=== PATIENT | male | born 1985 | race Caucasian/White ===

== ENCOUNTER 2020-08-01 13:02 | Inpatient (IN) ==
[2020-08-01] MEDS ORDERED: 0.9 % SODIUM CHLORIDE 1,000 ML IV ONE (13:21)
[2020-08-01 13:46] LABS: POC Blood Urea Nitrogen 12 mg/dL (6-20); POC CO2 25 mmol/L (22-30); POC Calcium, Ionized 1.02 mmEq/L (1.16-1.32); POC Chloride 98 mEq/L (96-108); POC Creatinine 1.1 mg/dL (0.6-1.2); POC Glucose, Random 106 mg/dL (70-105); POC Hematocrit 40 % (41-55); POC Potassium 4.7 mEql/L (3.3-5.1); POC Sodium 129 mEq/L (133-145)
--- NOTE | 2020-08-01 14:01 | Cat Scan Report ---
CLINICAL INFORMATION: Trauma COMPARISON: None. TECHNIQUE: 2.5 mm helical slices were obtained in the skull base to vertex. Following reconstruction, axial reformatted images were reviewed at bone and parenchymal windows. The exam was performed using radiation dose optimization techniques including, but not limited to, automated exposure control, adjustment of the mA and/or kV according to patient size and use of iterative reconstruction technique. FINDINGS: The ventricles, sulci, fissures, and cisterns are normal in size and configuration. No extra-axial fluid collections are identified. The cerebrum, brainstem and cerebellum are unremarkable. There is no evidence of hemorrhage, mass effect, or edema. Bone windows show no osseous abnormality. IMPRESSION: Normal head CT without contrast. Interpreted and Authenticated by: Dale Conway 08/01/20
--- NOTE | 2020-08-01 14:04 | Cat Scan Report ---
CLINICAL INFORMATION: Trauma COMPARISON: None. TECHNIQUE: 2.5 mm helical slices were obtained from the skull base through the superior T2 end plate. Following reconstruction, 2.5 mm sagittal, coronal and axial reformations , with and without disc space angling, were processed. The exam was reviewed at bone and soft tissue windows. The exam was performed using radiation dose optimization techniques including, but not limited to, automated exposure control, adjustment of the mA and/or kV according to patient size and use of iterative reconstruction technique. FINDINGS: Sagittal and coronal reformatted images show the cervical spine to be anatomically aligned. There is no fracture or other osseous abnormality. The cervical cord is normal in contour and caliber without focal lesion. The soft tissues are normal. At C5-6 minimal broad disc spur complex slightly impinges the thecal sac. C6-7 mild broad disc protrusion is noted. C7-T1 disc level is normal. The central canal, lateral recesses and IV foramen are normal width at each level. IMPRESSION: No fracture or posttraumatic change. Interpreted and Authenticated by: Dale Conway 08/01/20
[2020-08-01] MEDS ORDERED: ACETAMINOPHEN 325 MG TABLET PO ONE (14:21)
[2020-08-01 14:37] LABS: Alcohol, Blood < 10.0 mg/dL
[2020-08-01 14:40] LABS: Acetaminophen < 5.0 ug/mL; Salicylate 0.3 mg/dL
[2020-08-01 14:41] LABS: ALT/SGPT 5 U/L (<40); AST/SGOT 5 U/L (<40); Alkaline Phosphatase 227 U/L (39-117); Bilirubin,Total 2.2 mg/dL (0.1-1.0); Blood Urea Nitrogen 11 mg/dL (6-20); Calcium 8.2 mg/dL (8.6-10.4); Carbon Dioxide 23 mmol/L (22-30); Chloride 91 mmol/L (96-108); Globulin 3.1 gm/dL (2.2-3.7); Glomerular Filtration Rate 98; Glucose 111 mg/dL (70-105)
[2020-08-01] MEDS ORDERED: LORazepam 1 MG TABLET PO ONE (14:56)
[2020-08-01] MEDS ORDERED: ONDANSETRON 4 MG ODT TABLET SL ONE (15:07)
[2020-08-01 16:19] LABS: Hematocrit 34.2 % (41.0-55.0); Hemoglobin 12.5 g/dL (13.5-16.5); Mean Cell Volume 95.8 fL (80.0-100.0); Mean Corpuscular HGB Conc 36.5 g/dL (31.0-36.0); RBC 3.57 M/mcL (4.50-5.90); Red Cell Distribution Width 15.4 % (11.5-14.5)
[2020-08-01 16:27] LABS: Amphetamine Screen,Urine Suspect positive; Barbiturate Screen,Urine None detected; Benzodiazepines Screen,Urine None detected; Cannabinoid Screen,Urine Suspect Positive; Cocaine Screen,Urine None detected; Opiate Screen,Urine None detected; Oxycodone, Urine Screen None detected; Phencyclidine Screen,Urine None detected
--- NOTE | 2020-08-01 17:37 | Emergency Department Note ---
Seizure HPI General Chief Complaint: Seizure Stated Complaint: seizure Time Seen by Provider: 08/01/20 13:21 Source: patient and EMS Mode of arrival: EMS Limitations: no limitations History of Present Illness HPI Narrative: Narrative: Related Data Previous Rx's Medication Instructions Recorded lorazepam [Ativan] 1 mg PO TID PRN #12 tab 08/01/20 pantoprazole [Protonix] 40 mg PO QDAY #30 tab 08/01/20 Allergies Allergy/AdvReac Type Severity Reaction Status Date / Time ibuprofen Allergy Swelling Verified 08/01/20 13:05 of the Eye Review of Systems ROS ROS Narrative: Narrative: [facility] Narrative Patient History Narrative: Narrative: Medical/Surgical/Family History All Active Problems (Updated 08/01/20 @ 18:03 by KHLOE Gambino) Anemia (Acute) Elevated lipase (Acute) Cigarette smoker (Acute) Polysubstance abuse (Acute) Alcohol withdrawal seizure (Acute) History of alcohol abuse (Acute) History of pancreatitis (Acute) Occasional tremors (Acute) Dizziness (Acute) Weakness (Acute) Alcohol dependence with withdrawal (Acute) Pancreatitis (Acute) Hematochezia (Acute) Gastritis (Acute) Intractable nausea and vomiting (Acute) Medical History (Updated 08/01/20 @ 18:03 by KHLOE Gambino) Cigarette smoker (Acute) Dizziness (Acute) History of alcohol abuse (Acute) History of pancreatitis (Acute) Occasional tremors (Acute) Sinusitis (Resolved) Viral syndrome (Resolved) Weakness (Acute) Social History Smoking Status: Current every day smoker Alcohol Intake Frequency: 2+ drinks per day Substance Use: does not use Exam Narrative Narrative: Narrative: General Limitations: no limitations Course Vital Signs Vital signs: Vital Signs Pulse Rate 126 H 08/01/20 13:02 Respiratory Rate 20 08/01/20 13:02 Blood Pressure 211/176 08/01/20 13:02 Pulse Oximetry (%) 98 08/01/20 13:02 Pulse Rate 94 H 08/01/20 18:46 Respiratory Rate 16 08/01/20 18:46 Blood Pressure 148/111 08/01/20 18:46 Pulse Oximetry (%) 98 08/01/20 18:46 [facility] MDM Narrative Medical decision making narrative: Narrative: Patient originally tells us on triage and on initial exam but he denies any alcohol use for at least 4 weeks. However upon further questioning him time and time again he admits to some use here and there, states "like last night I was shaky so I had a beer ". He adamantly denies any drug use although his amphetamines and marijuana are positive. He is also tachycardic and hypertensive on arrival which is most likely explained by amphetamine use. Vitals did stabilize throughout his stay here and his heart rate proved improved to sinus rhythm in the 80s and blood pressure down to 130s over 80s. At 1830 upon going to discharge the patient, we did get a repeat CBC back. This was ordered because the original one could not be resulted however they were able to result some of it. Upon repeat he did have a significant drop in H&H. This is most likely due to receiving 2 L of fluid. Patient denies any blood in his stools or vomiting blood although he did vomit blood over a week ago. We did do orthostatics which were unremarkable. He actually does still have some mild hypertension blood pressures of 140s over 100. Upon standing though he did start having significant tremors and became diaphoretic and generally feeling poor again. We did give him another dose of Ativan IV. I did have a lengthy discussion with this patient about whether or not he wants to get treatment and detox completely and then get some help. He is adamant that he does. He is willing to go either inpatient or to an IOP program but needs help detoxing. At 1645 I did speak with Dr. Palmer with addiction medicine. She states she can be consulted if needed but there are protocols in place and she agrees that this patient needs to be admitted for detox. At 1910 I did speak with the hospitalist, Dr. Burrell who agrees to accept this patient. Medical Records Medical records reviewed: Yes I reviewed the patient's medical records. Lab Data Lab results reviewed: Yes I reviewed the patient's lab results. Lab results narrative: Due to lipemia, lab could not get the CBC. For that reason I did ask them to redraw again just to see if we get it for baseline. They were unable to get the white count but everything else was able to be resulted. 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 He was hydrated with 2 L normal saline. He did have a significant drop in H&H that is most likely due to the IV hydration. He again was examined and very minimal abdominal tenderness that is diffuse to the upper abdomen. Rectal exam done and is in the Hemoccult is negative. He does note that he has vomited blood a little over a week ago but nothing since. He denies any dizziness or lightheadedness. Orthostatic vital signs unremarkable just prior to discharge. He does have an appointment scheduled with a GI provider on September 15. Did discuss with him that if any of his symptoms increase he can return to the ER sooner for recheck. He voices an understanding. Case also discussed with supervising ER physician Dr. Strickland who agrees with work up and plan of care. Result diagrams: 08/01/20 15:50 08/01/20 13:35 Labs: Lab Results 08/01/20 08/01/20 08/01/20 Range/Units 13:35 13:35 13:35 WBC TNP RBC 3.57 L (4.50-5.90) M/mcL Hgb 12.5 L (13.5-16.5) g/dL Hct 34.2 L (41.0-55.0) % POC Hct 40 L (41-55) % MCV 95.8 (80.0-100.0) fL MCH 35.0 H (26.0-34.0) pg MCHC 36.5 H (31.0-36.0) g/dL RDW 15.4 H (11.5-14.5) % Plt Count TNP MPV TNP Neut % (Auto) TNP Lymph % (Auto) TNP [place] % (Auto) TNP Eos % (Auto) TNP Baso % (Auto) TNP Lymph # (Auto) TNP [place] # (Auto) TNP Eos # (Auto) TNP Baso # (Auto) TNP Absolute Neutrophils TNP Differential Comment TNP POC Sodium 129 L (133-145) mEq/L Sodium 127 L (133-145) mmol/L POC Potassium 4.7 (3.3-5.1) mEql/L Potassium 4.6 (3.3-5.1) mmol/L POC Chloride 98 (96-108) mEq/L Chloride 91 L (96-108) mmol/L Carbon Dioxide 23 (22-30) mmol/L POC Total CO2 25 (22-30) mmol/L Anion Gap 13.0 (8.0-16.0) POC BUN 12 (6-20) mg/dL BUN 11 (6-20) mg/dL Creatinine 1.0 (0.7-1.2) mg/dL POC Creatinine 1.1 (0.6-1.2) mg/dL GFR Calculation 98 Glucose 111 H (70-105) mg/dL POC Glucose 106 H (70-105) mg/dL Calcium 8.2 L (8.6-10.4) mg/dL POC WB Ioniz Calcium 1.02 L (1.16-1.32) mmEq/L Total Bilirubin 2.2 H (0.1-1.0) mg/dL AST 5 (<40) U/L ALT 5 (<40) U/L Alkaline Phosphatase 227 H (39-117) U/L Total Protein 6.1 (5.9-8.4) gm/dL Albumin 3.0 L (3.2-5.2) gm/dL Globulin 3.1 (2.2-3.7) gm/dL Albumin/Globulin Ratio 1.0 (1.0-2.3) Lipase (7-60) U/L Salicylates 0.3 mg/dL Urine Opiates Screen Ur Oxycodone Screen Urine Methadone Screen Acetaminophen < 5.0 ug/mL Ur Barbiturates Screen Ur Phencyclidine Scrn Ur Amphetamines Screen U Benzodiazepines Scrn Urine Cocaine Screen U Marijuana (THC) Screen Ethyl Alcohol (<0.010) gm/dL 08/01/20 08/01/20 08/01/20 Range/Units 13:35 13:40 15:50 WBC TNP RBC 3.03 L (4.50-5.90) M/mcL Hgb 10.4 L (13.5-16.5) g/dL Hct 28.9 L (41.0-55.0) % POC Hct (41-55) % MCV 95.4 (80.0-100.0) fL MCH 34.3 H (26.0-34.0) pg MCHC 36.0 (31.0-36.0) g/dL RDW 15.6 H (11.5-14.5) % Plt Count TNP MPV TNP Neut % (Auto) TNP Lymph % (Auto) TNP [place] % (Auto) TNP Eos % (Auto) TNP Baso % (Auto) TNP Lymph # (Auto) TNP [place] # (Auto) TNP Eos # (Auto) TNP Baso # (Auto) TNP Absolute Neutrophils TNP Differential Comment TNP POC Sodium (133-145) mEq/L Sodium (133-145) mmol/L POC Potassium (3.3-5.1) mEql/L Potassium (3.3-5.1) mmol/L POC Chloride (96-108) mEq/L Chloride (96-108) mmol/L Carbon Dioxide (22-30) mmol/L POC Total CO2 (22-30) mmol/L Anion Gap (8.0-16.0) POC BUN (6-20) mg/dL BUN (6-20) mg/dL Creatinine (0.7-1.2) mg/dL POC Creatinine (0.6-1.2) mg/dL GFR Calculation Glucose (70-105) mg/dL POC Glucose (70-105) mg/dL Calcium (8.6-10.4) mg/dL POC WB Ioniz Calcium (1.16-1.32) mmEq/L Total Bilirubin (0.1-1.0) mg/dL AST (<40) U/L ALT (<40) U/L Alkaline Phosphatase (39-117) U/L Total Protein (5.9-8.4) gm/dL Albumin (3.2-5.2) gm/dL Globulin (2.2-3.7) gm/dL Albumin/Globulin Ratio (1.0-2.3) Lipase 429 H (7-60) U/L Salicylates mg/dL Urine Opiates Screen Ur Oxycodone Screen Urine Methadone Screen Acetaminophen ug/mL Ur Barbiturates Screen Ur Phencyclidine Scrn Ur Amphetamines Screen U Benzodiazepines Scrn Urine Cocaine Screen U Marijuana (THC) Screen Ethyl Alcohol 0.010 H (<0.010) gm/dL 08/01/20 Range/Units 15:55 WBC RBC (4.50-5.90) M/mcL Hgb (13.5-16.5) g/dL Hct (41.0-55.0) % POC Hct (41-55) % MCV (80.0-100.0) fL MCH (26.0-34.0) pg MCHC (31.0-36.0) g/dL RDW (11.5-14.5) % Plt Count MPV Neut % (Auto) Lymph % (Auto) [place] % (Auto) Eos % (Auto) Baso % (Auto) Lymph # (Auto) [place] # (Auto) Eos # (Auto) Baso # (Auto) Absolute Neutrophils Differential Comment POC Sodium (133-145) mEq/L Sodium (133-145) mmol/L POC Potassium (3.3-5.1) mEql/L Potassium (3.3-5.1) mmol/L POC Chloride (96-108) mEq/L Chloride (96-108) mmol/L Carbon Dioxide (22-30) mmol/L POC Total CO2 (22-30) mmol/L Anion Gap (8.0-16.0) POC BUN (6-20) mg/dL BUN (6-20) mg/dL Creatinine (0.7-1.2) mg/dL POC Creatinine (0.6-1.2) mg/dL GFR Calculation Glucose (70-105) mg/dL POC Glucose (70-105) mg/dL Calcium (8.6-10.4) mg/dL POC WB Ioniz Calcium (1.16-1.32) mmEq/L Total Bilirubin (0.1-1.0) mg/dL AST (<40) U/L ALT (<40) U/L Alkaline Phosphatase (39-117) U/L Total Protein (5.9-8.4) gm/dL Albumin (3.2-5.2) gm/dL Globulin (2.2-3.7) gm/dL Albumin/Globulin Ratio (1.0-2.3) Lipase (7-60) U/L Salicylates mg/dL Urine Opiates Screen None detected Ur Oxycodone Screen None detected Urine Methadone Screen None detected Acetaminophen ug/mL Ur Barbiturates Screen None detected Ur Phencyclidine Scrn None detected Ur Amphetamines Screen Suspect positive A U Benzodiazepines Scrn None detected Urine Cocaine Screen None detected U Marijuana (THC) Screen Suspect positive A Ethyl Alcohol (<0.010) gm/dL Radiology Data Radiology results reviewed: Yes I reviewed the patient's radiology results. Radiology results narrative: CT of the head is negative for any acute findings. In addition we did review his recent CT of the abdomen and pelvis which was negative other than increased fatty liver consistent with alcoholism. Chose not to repeat this due to the recent CT with the last couple of weeks. His lipase is continuing to increase however his abdominal exam is fairly benign. He has some mild pain but is tolerable. In addition he continues to drink alcohol intermittently and his drug screen is positive for amphetamines. Discharge Plan Patient/Caregiver Discharge Instructions Pt seen by PROFESSIONAL [employer]LEYBALL PLAYER/PA only: Yes Clinical Impression: History of alcohol abuse, History of pancreatitis, Alcohol dependence with withdrawal, Polysubstance abuse, Alcohol withdrawal seizure, Anemia, Elevated lipase Instructions: Alcohol Withdrawal (ED), Polysubstance Abuse (ED), Anemia (ED) Activity Restrictions/Additional Instructions: Avoid all alcohol and drug use. Ativan: 1 orally every 8 hours as needed for withdrawal symptoms. Protonix: 1 orally daily. You need to follow-up with your primary care provider of your choice within the next 24 to 48 hours for follow-up. If you do not have a primary care provider you may follow-up with Dr. Grossman who is on-call for unassigned patients. His number has been provided here for you. In addition we have sent a referral for you to Dr. Ohara Please call their office to schedule a follow-up appointment. She is an medical transport specialist. Return to ER if worsening signs/symptoms or other concerns. Patient Disposition: Xfer As Inpt ([facility]) Condition: Fair Follow up with: April Ohara DO [Physician] - Rakesh Grossman MD [Physician] - Prescriptions: New lorazepam [Ativan] 1 mg tablet 1 mg PO TID PRN (Reason: alcohol withdrawal) Qty: 12 RF: 0 pantoprazole [Protonix] 40 mg tablet,delayed release (DR/EC) 40 mg PO QDAY Qty: 30 RF: 0
[2020-08-01 17:45] LABS: Hematocrit 28.9 % (41.0-55.0); Hemoglobin 10.4 g/dL (13.5-16.5); Mean Cell Volume 95.4 fL (80.0-100.0); RBC 3.03 M/mcL (4.50-5.90); Red Cell Distribution Width 15.6 % (11.5-14.5)
[2020-08-01] MEDS ORDERED: LORazepam 2 MG/ML VIAL IV ONE (18:14)
[2020-08-01 19:47] LABS: Basophils # (Auto) 0.05 K/mcL (0.00-0.20); Basophils % (Auto) 0.6 % (0.0-2.0); Eosinophils # (Auto) 0.05 K/mcL (0.00-0.70); Eosinophils % (Auto) 0.6 % (0.0-7.0); Hematocrit 34.6 % (41.0-55.0); Hemoglobin 12.3 g/dL (13.5-16.5); Lymphocytes # (Auto) 1.85 K/mcL (1.50-4.80); Lymphocytes % (Auto) 23.4 % (15.0-49.0); Mean Cell Volume 96.4 fL (80.0-100.0); Mean Corpuscular HGB Conc 35.5 g/dL (31.0-36.0); Mean Platelet Volume 12.9 fL (7.4-10.4); Monocytes # (Auto) 0.42 K/mcL (0.10-0.90); Monocytes % (Auto) 5.3 % (1.0-12.0); Neutrophils % (Auto) 70.1 % (38.0-78.0); Platelet Count 72 K/mcL (140-440); RBC 3.59 M/mcL (4.50-5.90); Red Cell Distribution Width 15.5 % (11.5-14.5); WBC 7.9 K/mcL (4.5-11.0)
--- NOTE | 2020-08-01 20:06 | Internal Med History&Physical ---
HPI History of Present Illness Patient information: Note initiated : 08/01/20 at 7:57 pm Service Date, if different from initiated Date: [] Patient: Lynn Leonardo a 34 y/o M admitted on for seizure. Chief Complaint: [] History of present illness: Mr. Leonardo is a 34 year old M Presents to the ED with seizure. Patient has not had seizures before. He does have an extensive history of alcohol abuse. States he drinks at least half a gallon of vodka on a typical day. He has been trying to cut back lately. While at work he had a witnessed seizure. He was tachycardic and hypertensive in the ED. He says that when he gets tremulous at home he will drink alcohol will resolve of his withdrawal symptoms. He has a family history of alcoholism as well. Additionally he complains of epigastric sharp pain nonradiating that he attributes to nausea vomiting. He states he does not eat or drink very much because he developed nausea vomiting and then subsequent abdominal pain. he says this been going on for 6 months but worsened over the past couple months. He says he is being set up to see [facility] gastroenterology group. He denies any drug use other than occasional marijuana. He had his stool Hemoccult test which was negative in the ED. UDS showed a preliminary positive amphetamine screen with confirmation pending, he denies any methamphetamine use. Review of Systems: Pertinent positives of as above plus headache. Denies fever/chills/nausea/vomiting/chest or abdominal pain/cough/dyspnea/diarrhea. Remaining 10 point review of system reviewed negative. PFSH PFSH All Active Problems (Updated 08/01/20 @ 18:03 by KHLOE Gambino) Anemia (Acute) Elevated lipase (Acute) Cigarette smoker (Acute) Polysubstance abuse (Acute) Alcohol withdrawal seizure (Acute) History of alcohol abuse (Acute) History of pancreatitis (Acute) Occasional tremors (Acute) Dizziness (Acute) Weakness (Acute) Alcohol dependence with withdrawal (Acute) Pancreatitis (Acute) Hematochezia (Acute) Gastritis (Acute) Intractable nausea and vomiting (Acute) Medical History (Updated 08/01/20 @ 18:03 by KHLOE Gambino) Cigarette smoker (Acute) Dizziness (Acute) History of alcohol abuse (Acute) History of pancreatitis (Acute) Occasional tremors (Acute) Sinusitis (Resolved) Viral syndrome (Resolved) Weakness (Acute) Social History (Updated 08/01/20 @ 20:01 by Chin Burrell DO) smoking status: Current every day smoker alcohol intake frequency: 2+ drinks per day substance use type: does not use additional history: Family history of alcoholism. Past surgical history: Hernia repair MEDS/ALLERGIES Home Medications and Allergies Home Medications Medication Instructions Recorded Confirmed Type lorazepam [Ativan] 1 mg PO TID PRN #12 tab 08/01/20 Rx pantoprazole [Protonix] 40 mg PO QDAY #30 tab 08/01/20 Rx Allergies Allergy/AdvReac Type Severity Reaction Status Date / Time ibuprofen Allergy Swelling Verified 08/01/20 13:05 of the Eye EXAM Constitutional Vitals: Pulse Resp BP Pulse Ox 87 16 148/111 99 08/01/20 19:46 08/01/20 18:46 08/01/20 19:46 08/01/20 19:46 Exam: General: Alert, Awake, mildly anxious Eyes/N/T: EOMI, PERRL and mildly dilated dry MM Head/Neck: neck supple, normocephalic atraumatic CV: RRR, No murmurs, normal s1/s2 Pulm: Clear b/l, no wheezing/rhonchi/rales Abd: soft, nontender, +BS x4 Ext: no clubbing/cyanosis/edema Neuro: Alert, no focal deficits, moves all extremities, CN 2-12 grossly intact, symmetrical strength b/l upper/lower, sensations intact b/l upper/lower Skin: warm/dry DATA Data Completed and Pending Labs: Labs from last 24 hours 08/01/20 08/01/20 08/01/20 19:36 18:39 15:55 WBC 7.9 RBC 3.59 L Hgb 12.3 L Hct 34.6 L POC Hct MCV 96.4 MCH 34.3 H MCHC 35.5 RDW 15.5 H Plt Count 72 L MPV 12.9 H Neut % (Auto) 70.1 Lymph % (Auto) 23.4 [place] % (Auto) 5.3 Eos % (Auto) 0.6 Baso % (Auto) 0.6 Lymph # (Auto) 1.85 [place] # (Auto) 0.42 Eos # (Auto) 0.05 Baso # (Auto) 0.05 Absolute Neutrophils 5.54 Differential Comment POC Sodium Sodium POC Potassium Potassium POC Chloride Chloride Carbon Dioxide POC Total CO2 Anion Gap POC BUN BUN Creatinine POC Creatinine GFR Calculation Glucose POC Glucose Calcium POC WB Ioniz Calcium Total Bilirubin AST ALT Alkaline Phosphatase Total Protein Albumin Globulin Albumin/Globulin Ratio Lipase Salicylates Urine Opiates Screen None detected Ur Opiates Confirm Pending Ur Oxycodone Screen None detected Urine Methadone Screen None detected Ur Methadone Confirm Pending Acetaminophen Ur Barbiturates Screen None detected Ur Barbiturate Confirm Pending Ur Phencyclidine Scrn None detected Urine PCP Confirm Pending Ur Amphetamines Screen Suspect positive A U Amphetamines Confirm Pending U Benzodiazepines Scrn None detected U Benzodiazepine Confm Pending Urine Cocaine Screen None detected Urine Cocaine Confirm Pending U Cannabinoids Confirm Pending U Marijuana (THC) Screen Suspect positive A Ethyl Alcohol SARS-CoV-2 (PCR) Pending 08/01/20 08/01/20 08/01/20 15:50 13:40 13:35 WBC TNP RBC 3.03 L Hgb 10.4 L Hct 28.9 L POC Hct MCV 95.4 MCH 34.3 H MCHC 36.0 RDW 15.6 H Plt Count TNP MPV TNP Neut % (Auto) TNP Lymph % (Auto) TNP [place] % (Auto) TNP Eos % (Auto) TNP Baso % (Auto) TNP Lymph # (Auto) TNP [place] # (Auto) TNP Eos # (Auto) TNP Baso # (Auto) TNP Absolute Neutrophils TNP Differential Comment TNP POC Sodium Sodium POC Potassium Potassium POC Chloride Chloride Carbon Dioxide POC Total CO2 Anion Gap POC BUN BUN Creatinine POC Creatinine GFR Calculation Glucose POC Glucose Calcium POC WB Ioniz Calcium Total Bilirubin AST ALT Alkaline Phosphatase Total Protein Albumin Globulin Albumin/Globulin Ratio Lipase 429 H Salicylates Urine Opiates Screen Ur Opiates Confirm Ur Oxycodone Screen Urine Methadone Screen Ur Methadone Confirm Acetaminophen Ur Barbiturates Screen Ur Barbiturate Confirm Ur Phencyclidine Scrn Urine PCP Confirm Ur Amphetamines Screen U Amphetamines Confirm U Benzodiazepines Scrn U Benzodiazepine Confm Urine Cocaine Screen Urine Cocaine Confirm U Cannabinoids Confirm U Marijuana (THC) Screen Ethyl Alcohol 0.010 H SARS-CoV-2 (PCR) 08/01/20 08/01/20 08/01/20 13:35 13:35 13:35 WBC TNP RBC 3.57 L Hgb 12.5 L Hct 34.2 L POC Hct 40 L MCV 95.8 MCH 35.0 H MCHC 36.5 H RDW 15.4 H Plt Count TNP MPV TNP Neut % (Auto) TNP Lymph % (Auto) TNP [place] % (Auto) TNP Eos % (Auto) TNP Baso % (Auto) TNP Lymph # (Auto) TNP [place] # (Auto) TNP Eos # (Auto) TNP Baso # (Auto) TNP Absolute Neutrophils TNP Differential Comment TNP POC Sodium 129 L Sodium 127 L POC Potassium 4.7 Potassium 4.6 POC Chloride 98 Chloride 91 L Carbon Dioxide 23 POC Total CO2 25 Anion Gap 13.0 POC BUN 12 BUN 11 Creatinine 1.0 POC Creatinine 1.1 GFR Calculation 98 Glucose 111 H POC Glucose 106 H Calcium 8.2 L POC WB Ioniz Calcium 1.02 L Total Bilirubin 2.2 H AST 5 ALT 5 Alkaline Phosphatase 227 H Total Protein 6.1 Albumin 3.0 L Globulin 3.1 Albumin/Globulin Ratio 1.0 Lipase Salicylates 0.3 Urine Opiates Screen Ur Opiates Confirm Ur Oxycodone Screen Urine Methadone Screen Ur Methadone Confirm Acetaminophen < 5.0 Ur Barbiturates Screen Ur Barbiturate Confirm Ur Phencyclidine Scrn Urine PCP Confirm Ur Amphetamines Screen U Amphetamines Confirm U Benzodiazepines Scrn U Benzodiazepine Confm Urine Cocaine Screen Urine Cocaine Confirm U Cannabinoids Confirm U Marijuana (THC) Screen Ethyl Alcohol SARS-CoV-2 (PCR) A/P Narrative A/P Narrative: A: *Acute withdrawal w/Seizure: *Alcohol abuse: *Pancreatitis, alcohol induced, mild: *Hyponatremia: *Tobacco abuse: *Fatty liver: *GERD: * P: -CIWA protocol -Multivitamins -IV fluids -N.p.o. tonight - -Follow-up with Dr. Trent conklin outpatient -Follow-up with gastroenterology outpatient -Smoking cessation counseling -ppx: SCD Time Spent With Patient Time: Total time spent is greater than 50% in coordination of care (as documented) at patient's floor/unit and/or counseling patient:
[2020-08-01] MEDS ORDERED: PANTOPRAZOLE 40 MG VIAL IV SCH (20:35)
[2020-08-01] MEDS ORDERED: SENNOSIDES 1 TABLET PO PRN (20:35)
[2020-08-01] MEDS ORDERED: POLYETHYLENE GLYCOL 3350 17 GM PACKET PO PRN (20:35)
[2020-08-01] MEDS ORDERED: POTASSIUM CHLORIDE 20 MEQ TABLET PO PRN ×2 (20:35)
[2020-08-01] MEDS ORDERED: MAGNESIUM SULFATE 2 GM/50 ML BAG IV PRN (20:35)
[2020-08-01] MEDS ORDERED: POTASSIUM CHLORIDE 40 MEQ in DEXTROSE 5% IN WATER 500 ML IV PRN (20:35)
[2020-08-01] MEDS: 0.9 % SODIUM CHLORIDE 1,000 ML IV SCH (21:03)
[2020-08-01] MEDS: ONDANSETRON 4 MG/2 ML VIAL IV PRN (21:11)
[2020-08-01] MEDS: THIAMINE 100 MG in 0.9 % SODIUM CHLORIDE 50 ML IV SCH (21:52)
[2020-08-01] MEDS: 0.9 % SODIUM CHLORIDE 10 ML SYRINGE IV SCH ×2 (21:53)
[2020-08-01] MEDS ORDERED: THIAMINE 100 MG/ML VIAL ONE (21:54)
[2020-08-01 22:00] LABS: Lactate Dehydrogenase 302 U/L (135-225)
[2020-08-01] MEDS: HYDROcodone/APAP 5/325MG TABLET PO PRN (22:09)
[2020-08-01] MEDS: chlordiazePOXIDE 25 MG CAPSULE PO PRN (22:10)
[2020-08-02] MEDS: LORazepam 2 MG/ML VIAL IV PRN ×5 (01:36→21:33)
[2020-08-02] MEDS: 0.9 % SODIUM CHLORIDE 1,000 ML IV SCH (05:41)
[2020-08-02] MEDS: 0.9 % SODIUM CHLORIDE 10 ML SYRINGE IV SCH ×4 (05:41→20:32)
--- NOTE | 2020-08-02 06:46 | Internal Med Progress Note ---
SUBJECTIVE Subjective Patient information: Note initiated : 08/02/20 at 6:43 am Service Date, if different from initiated Date: [] Patient: Lynn Leonardo 34 y/o M admitted on 08/01/20 for seizure. Chief Complaint: [] Interval history: History of present illness: Mr. Leonardo is a 34 year old M Presents to the ED with seizure. Patient has not had seizures before. He does have an extensive history of alcohol abuse. States he drinks at least half a gallon of vodka on a typical day. He has been trying to cut back lately. While at work he had a witnessed seizure. He was tachycardic and hypertensive in the ED. He says that when he gets tremulous at home he will drink alcohol will resolve of his withdrawal symptoms. He has a family history of alcoholism as well. Additionally he complains of epigastric sharp pain nonradiating that he attributes to nausea vomiting. He states he does not eat or drink very much because he developed nausea vomiting and then subsequent abdominal pain. he says this been going on for 6 months but worsened over the past couple months. He says he is being set up to see [facility] gastroenterology group. He denies any drug use other than occasional marijuana. He had his stool Hemoccult test which was negative in the ED. 08/02 CIWA between 9 and 13 last night. Given as needed lorazepam. No other overnight issues. Patient tolerated clear liquid diet last night. Says he is hungry. Platelets low, chronically low. No bleeding. Dates he has some headache/fever/chills. Afebrile on vital signs check. Some nausea but no vomiting. Similar abdominal pain to yesterday but a little better. Review of Systems: denies vomiting/chest pain/cough/dyspnea/diarrhea. Otherwise see above. Constitutional Vitals: Vital Signs Temp Pulse Resp BP Pulse Ox 98.2 F 82 12 127/95 99 08/02/20 04:00 08/02/20 05:56 08/02/20 05:56 08/02/20 04:00 08/02/20 05:56 Period Temp Pulse Resp BP Sys/Jennings Pulse Ox Last 24 Hr 98.2 F-98.2 F 75-126 11-23 127-211/94-176 93-100 Intake and Output 02/08/02/20 08/02/20 21:59 05:59 13:59 Intake Total 1000 1671 Output Total 2700 Balance 1000 -1029 Weight 59.602 kg Intake & Output: Intake & Output 08/01/20 08/02/20 08/02/20 21:59 05:59 13:59 Intake Total 1000 1671 Output Total 2700 Balance 1000 -1029 Weight 59.602 kg Intake: IV 1000 1051 Sodium Chloride 0.9% 1,000 ml @ 1000 1000 125 mls/hr IV .Q8H JESSICA Rx#: [id number] Vitamin B1 100 mg In Sodium 51 Chloride 0.9% 50 ml @ 50 mls/hr IV DAILY JESSICA Rx#:[id number] Oral 620 Output: Void Amount 2700 Other: Urine Appearance Clear Urine Color Dark Katharina Exam: General: Alert, Awake, no acute distress Eyes/N/T: EOMI, Head/Neck: neck supple CV: RRR, No murmurs, Pulm: Clear b/l, no wheezing/rhonchi/rales Abd: soft, generalized TTP but more so epigastrum, +BS x4 Ext: no clubbing/cyanosis/edema Neuro: Alert, no focal deficits, moves all extremities, Skin: warm/dry OBJ DATA Labs CBC & Chem 7: 08/02/20 05:13 08/02/20 05:12 Labs: Abnormal Lab Results 08/01/20 08/01/20 08/01/20 20:57 18:39 15:55 RBC 3.59 L Hgb 12.3 L Hct 34.6 L POC Hct MCH 34.3 H MCHC RDW 15.5 H Plt Count 72 L MPV 12.9 H POC Sodium Sodium Chloride Glucose POC Glucose Calcium POC WB Ioniz Calcium Total Bilirubin Alkaline Phosphatase Lactate Dehydrogenase 302 H Albumin Lipase Ur Amphetamines Screen Suspect positive A U Marijuana (THC) Screen Suspect positive A Ethyl Alcohol 08/01/20 08/01/20 08/01/20 15:50 13:40 13:35 RBC 3.03 L Hgb 10.4 L Hct 28.9 L POC Hct MCH 34.3 H MCHC RDW 15.6 H Plt Count MPV POC Sodium Sodium Chloride Glucose POC Glucose Calcium POC WB Ioniz Calcium Total Bilirubin Alkaline Phosphatase Lactate Dehydrogenase Albumin Lipase 429 H Ur Amphetamines Screen U Marijuana (THC) Screen Ethyl Alcohol 0.010 H 08/01/20 08/01/20 13:35 13:35 RBC 3.57 L Hgb 12.5 L Hct 34.2 L POC Hct 40 L MCH 35.0 H MCHC 36.5 H RDW 15.4 H Plt Count MPV POC Sodium 129 L Sodium 127 L Chloride 91 L Glucose 111 H POC Glucose 106 H Calcium 8.2 L POC WB Ioniz Calcium 1.02 L Total Bilirubin 2.2 H Alkaline Phosphatase 227 H Lactate Dehydrogenase Albumin 3.0 L Lipase Ur Amphetamines Screen U Marijuana (THC) Screen Ethyl Alcohol Meds: Medications Hydrocodone Bitart/Acetaminophen ([place] 5/325mg) 1 tab PO Q4HP PRN PRN Reason: PAIN LEVEL 3-6 Last Admin: 08/01/20 22:09 Dose: 1 tab Documented by: Chlordiazepoxide HCl (Librium) 50 mg PO Q4HP PRN PRN Reason: Alcohol Withdrawal Last Admin: 08/01/20 22:10 Dose: 50 mg Documented by: Clonidine HCl (Catapres) 0.1 mg PO Q4HP PRN PRN Reason: ALC Folic Acid (Folic Acid) 1 mg PO DAILY [facility] Potassium Chloride 40 meq/ (Dextrose) 520 mls @ 130 mls/hr IV UD PRN PRN Reason: Potassium < 3 Magnesium Sulfate (Magnesium Sulfate) 2 gm in 50 mls @ 50 mls/hr IV UD PRN PRN Reason: Magnesium </= 1.6 Sodium Chloride (Sodium Chloride 0.9%) 1,000 mls @ 125 mls/hr IV .Q8H JESSICA Last Admin: 08/02/20 05:41 Dose: 125 mls/hr Documented by: Thiamine HCl 100 mg/ Sodium (Chloride) 51 mls @ 50 mls/hr IV DAILY [facility] Last Infusion: 08/02/20 01:43 Dose: Infused Documented by: Iron Carb/Multivit/[place]/Folic Acid (Multivitamin W/Minerals) 1 tab PO DAILY JESSICA Lorazepam (Ativan) 0 mg IV Q4HP PRN; Protocol PRN Reason: Alcohol Withdrawal Last Admin: 08/02/20 01:36 Dose: 2 mg Documented by: Ondansetron HCl (Zofran) 4 mg IV Q4HP PRN PRN Reason: Nausea And Vomiting Last Admin: 08/01/20 21:11 Dose: 4 mg Documented by: Pantoprazole Sodium (Protonix) 40 mg IV BIDAC [facility] Last Admin: 08/01/20 21:52 Dose: 40 mg Documented by: Polyethylene Glycol (Miralax) 17 gm PO DAILYP PRN PRN Reason: Constipation Potassium Chloride (Kdur) 40 meq PO UD PRN PRN Reason: Potssium is 3-3.5 Potassium Chloride (Kdur) 40 meq PO UD PRN PRN Reason: Potassium < 3 Senna (Senokot) 2 tab PO DAILYP PRN PRN Reason: Constipation Sodium Chloride (Saline Flush) 10 ml IV Q8 [facility] Last Admin: 08/02/20 05:41 Dose: Not Given Documented by: Sodium Chloride (Saline Flush) 10 ml IV Q8 [facility] Last Admin: 08/02/20 05:41 Dose: Not Given Documented by: A/P Narrative A/P Narrative: A: *Acute Alcohol withdrawal w/Seizure: *Alcohol abuse: *Pancreatitis, alcohol induced, mild: *Hyponatremia: improved *Tobacco abuse: *Fatty liver with Transaminitis: stable from June *Thrombocytopenia: likely etoh induced by direct toxicity to bone marrow -72>47 *GERD: *in process of being set-up with GI outpt for endoscopy for n/v with food. P: -CIWA protocol -Multivitamins -IV fluids -start clear liquids -abd u/s pending -Follow-up with Dr. Ohara outpatient -Follow-up with gastroenterology outpatient -Smoking cessation counseling -ppx: SCD Time Spent With Patient Time: Total time spent is greater than 50% in coordination of care (as documented) at patient's floor/unit and/or counseling patient:
[2020-08-02] MEDS: PANTOPRAZOLE 40 MG PACKET PO SCH ×2 (07:28→17:45)
[2020-08-02] MEDS: HYDROcodone/APAP 5/325MG TABLET PO PRN ×4 (07:43→20:36)
[2020-08-02 07:57] LABS: ALT/SGPT 100 U/L (<40); AST/SGOT 189 U/L (<40); Albumin 3.2 gm/dL (3.2-5.2); Alkaline Phosphatase 224 U/L (39-117); Bilirubin,Direct 1.2 mg/dL (<0.3); Bilirubin,Total 2.3 mg/dL (0.1-1.0); Blood Urea Nitrogen 4 mg/dL (6-20); Calcium 7.9 mg/dL (8.6-10.4); Carbon Dioxide 27 mmol/L (22-30); Chloride 95 mmol/L (96-108); Globulin 3.3 gm/dL (2.2-3.7); Glomerular Filtration Rate 111; Glucose 66 mg/dL (70-105); Lactate Dehydrogenase 341 U/L (135-225); Phosphorous 2.4 mg/dL (2.5-4.5); Triglycerides 535 mg/dL (<150); Uric Acid 8.2 mg/dL (2.5-8.0)
[2020-08-02 07:57] LABS: Basophils # (Auto) 0.04 K/mcL (0.00-0.20); Basophils % (Auto) 0.5 % (0.0-2.0); Eosinophils # (Auto) 0.13 K/mcL (0.00-0.70); Eosinophils % (Auto) 1.8 % (0.0-7.0); Hematocrit 34.3 % (41.0-55.0); Hemoglobin 12.3 g/dL (13.5-16.5); Lymphocytes # (Auto) 1.76 K/mcL (1.50-4.80); Lymphocytes % (Auto) 23.9 % (15.0-49.0); Mean Corpuscular HGB Conc 35.9 g/dL (31.0-36.0); Mean Platelet Volume 12.4 fL (7.4-10.4); Monocytes # (Auto) 0.38 K/mcL (0.10-0.90); Monocytes % (Auto) 5.2 % (1.0-12.0); Neutrophils % (Auto) 68.6 % (38.0-78.0); Platelet Count 47 K/mcL (140-440); RBC 3.61 M/mcL (4.50-5.90); Red Cell Distribution Width 14.8 % (11.5-14.5); WBC 7.4 K/mcL (4.5-11.0)
[2020-08-02 09:14] LABS: INR 0.9 (0.9-1.1); Prothrombin Time 12.8 sec (11.9-14.5)
[2020-08-02] MEDS: MULTIVIT,THER IRON,CA,FA & MIN 1 TABLET PO SCH (09:31)
[2020-08-02] MEDS: FOLIC ACID 1 MG TABLET PO SCH (09:31)
[2020-08-02] MEDS: DEXTROSE 5%-NS 1,000 ML IV SCH ×2 (09:31→17:54)
[2020-08-02] MEDS: ONDANSETRON 4 MG/2 ML VIAL IV PRN (09:33)
[2020-08-02 09:37] LABS: Platelet Count 59 K/mcL (140-440); WBC 7.7 K/mcL (4.5-11.0)
[2020-08-02 09:40] LABS: Basophils # (Auto) 0.04 K/mcL (0.00-0.20); Basophils % (Auto) 0.5 % (0.0-2.0); Eosinophils # (Auto) 0 K/mcL (0.00-0.70); Eosinophils % (Auto) 0.1 % (0.0-7.0); Lymphocytes # (Auto) 1.03 K/mcL (1.50-4.80); Lymphocytes % (Auto) 13.4 % (15.0-49.0); Mean Platelet Volume 11.6 fL (7.4-10.4); Neutrophils % (Auto) 80.9 % (38.0-78.0)
[2020-08-02] MEDS ORDERED: SUCRALFATE 1 GM TABLET PO ONE (09:43)
[2020-08-02] MEDS ORDERED: CALCIUM CARBONATE 500 MG TAB.CHEW CHEWED PRN (09:43)
[2020-08-02 09:45] LABS: Basophils # (Auto) 0.04 K/mcL (0.00-0.20); Basophils % (Auto) 0.5 % (0.0-2.0); Eosinophils # (Auto) 0.01 K/mcL (0.00-0.70); Eosinophils % (Auto) 0.1 % (0.0-7.0); Lymphocytes # (Auto) 1.25 K/mcL (1.50-4.80); Lymphocytes % (Auto) 15.9 % (15.0-49.0); Mean Platelet Volume 12.4 fL (7.4-10.4); Monocytes # (Auto) 0.41 K/mcL (0.10-0.90); Monocytes % (Auto) 5.2 % (1.0-12.0); Neutrophils % (Auto) 78.3 % (38.0-78.0); Platelet Count 60 K/mcL (140-440); WBC 7.8 K/mcL (4.5-11.0)
[2020-08-02] MEDS: THIAMINE 100 MG in 0.9 % SODIUM CHLORIDE 50 ML IV SCH (09:46)
--- NOTE | 2020-08-02 10:15 | Ultrasound Report ---
CLINICAL INFORMATION: liver/GB/spleen/pancr, transaminities - alcoholism COMPARISON: None. FINDINGS: Liver is slightly decreased in size - 14 cm mid clavicular line. It is hyperechoic and heterogeneous suggestive of,, but not diagnostic of cirrhosis. No focal hepatic lesions. Gallbladder and bile ducts are normal CBD is 5 mm. Pancreas is unremarkable. Both kidneys are normal: The right is 11.3 x 5.6 cm and the left is 10.8 x 5.1 cm. 2. nonobstructing stones within the superior mid calyces of the right kidney are both less than 3 mm. The spleen, aorta and IVC are normal. IMPRESSION: Decreased hepatic size and elevated echotexture suggesting cirrhosis. No focal hepatic lesions. Two nonobstructing stones in the superior and mid calyces of the right kidney - both less than 3 mm. Interpreted and Authenticated by: Dale Conway 08/02/20
[2020-08-02] MEDS: cloNIDine HCL 0.1 MG TABLET PO PRN ×2 (19:20→22:59)
[2020-08-02] MEDS: chlordiazePOXIDE 25 MG CAPSULE PO PRN (20:36)
[2020-08-03] MEDS: chlordiazePOXIDE 25 MG CAPSULE PO PRN ×6 (00:30→22:34)
[2020-08-03] MEDS: HYDROcodone/APAP 5/325MG TABLET PO PRN ×5 (00:30→17:07)
[2020-08-03] MEDS: LORazepam 2 MG/ML VIAL IV PRN ×4 (02:11→21:46)
[2020-08-03] MEDS: 0.9 % SODIUM CHLORIDE 10 ML SYRINGE IV SCH ×3 (04:56→20:25)
[2020-08-03 06:45] LABS: Basophils # (Auto) 0.02 K/mcL (0.00-0.20); Basophils % (Auto) 0.4 % (0.0-2.0); Eosinophils # (Auto) 0.14 K/mcL (0.00-0.70); Eosinophils % (Auto) 2.6 % (0.0-7.0); Hematocrit 35.1 % (41.0-55.0); Hemoglobin 12.4 g/dL (13.5-16.5); Lymphocytes # (Auto) 1.46 K/mcL (1.50-4.80); Lymphocytes % (Auto) 27.3 % (15.0-49.0); Mean Cell Volume 94.9 fL (80.0-100.0); Mean Corpuscular HGB Conc 35.3 g/dL (31.0-36.0); Mean Platelet Volume 11.9 fL (7.4-10.4); Monocytes # (Auto) 0.34 K/mcL (0.10-0.90); Monocytes % (Auto) 6.4 % (1.0-12.0); Neutrophils % (Auto) 63.3 % (38.0-78.0); Platelet Count 53 K/mcL (140-440); Red Cell Distribution Width 15.9 % (11.5-14.5); WBC 5.3 K/mcL (4.5-11.0)
[2020-08-03 07:13] LABS: ALT/SGPT 97 U/L (<40); AST/SGOT 158 U/L (<40); Albumin 3.3 gm/dL (3.2-5.2); Albumin/Globulin Ratio 0.9 (1.0-2.3); Alkaline Phosphatase 251 U/L (39-117); Bilirubin,Direct 1.6 mg/dL (<0.3); Bilirubin,Total 2.5 mg/dL (0.1-1.0); Blood Urea Nitrogen 2 mg/dL (6-20); Calcium 8.5 mg/dL (8.6-10.4); Carbon Dioxide 30 mmol/L (22-30); Chloride 99 mmol/L (96-108); Globulin 3.8 gm/dL (2.2-3.7); Glomerular Filtration Rate 123; Glucose 93 mg/dL (70-105); Lactate Dehydrogenase 242 U/L (135-225); Phosphorous 2.3 mg/dL (2.5-4.5); Triglycerides 281 mg/dL (<150); Uric Acid 5.4 mg/dL (2.5-8.0)
--- NOTE | 2020-08-03 07:31 | Internal Med Progress Note ---
SUBJECTIVE Subjective Patient information: Note initiated : 08/03/20 at 7:27 am Service Date, if different from initiated Date: [] Patient: Lynn Leonardo a 34 y/o M admitted on 08/01/20 for seizure. Chief Complaint: [] Interval history: History of present illness: Mr. Leonardo is a 34 year old M Presents to the ED with seizure. Patient has not had seizures before. He does have an extensive history of alcohol abuse. States he drinks at least half a gallon of vodka on a typical day. He has been trying to cut back lately. While at work he had a witnessed seizure. He was tachycardic and hypertensive in the ED. He says that when he gets tremulous at home he will drink alcohol will resolve of his withdrawal symptoms. He has a family history of alcoholism as well. Additionally he complains of epigastric sharp pain nonradiating that he attributes to nausea vomiting. He states he does not eat or drink very much because he developed nausea vomiting and then subsequent abdominal pain. he says this been going on for 6 months but worsened over the past couple months. He says he is being set up to see [facility] gastroenterology group. He denies any drug use other than occasional marijuana. He had his stool Hemoccult test which was negative in the ED. 08/02 CIWA between 9 and 13 last night. Given as needed lorazepam. No other overnight issues. Patient tolerated clear liquid diet last night. Says he is hungry. Platelets low, chronically low. No bleeding. Dates he has some headache/fever/chills. Afebrile on vital signs check. Some nausea but no vomiting. Similar abdominal pain to yesterday but a little better. 08/03 Feeling a little better. Did get some IV Ativan overnight for elevated CIWA. Tolerating full liquid diet. CBC stable. Liver enzymes slightly improved. Ultrasound with findings suggestive of cirrhosis. Abdominal pain improving. Review of Systems: denies headache/fever/chills//vomiting/chest pain/cough/dyspnea/diarrhea. Otherwise see above. Constitutional Vitals: Vital Signs Temp Pulse Resp BP Pulse Ox 96.9 F L 106 H 18 127/95 97 08/03/20 04:14 08/02/20 18:02 08/03/20 04:14 08/03/20 04:14 08/03/20 04:14 Period Temp Pulse Resp BP Sys/Jennings Pulse Ox Last 24 Hr 96.9 F-98.9 F 84-119 10-21 113-141/83-107 93-99 Intake and Output 08/02/20 08/03/20 08/03/20 21:59 05:59 13:59 Intake Total 2430 1480 Output Total 2600 1325 Balance -170 155 Weight 61.689 kg Intake & Output: Intake & Output 08/02/20 08/03/20 08/03/20 21:59 05:59 13:59 Intake Total 2430 1480 Output Total 2600 1325 Balance -170 155 Weight 61.689 kg Intake: IV 1000 1000 Dextrose 5%-Ns IV Solution 1, 1000 1000 000 ml @ 125 mls/hr IV .Q8H JESSICA Rx#:[id number] Oral 1430 480 Output: Void Amount 2600 1325 Other: Meal Dinner Percent of Meal Consumed 75% Feeding Ability Independent Urine Appearance Clear Clear Urine Color Bright Yellow Bright Yellow Urine Odor Strong Exam: General: Alert, Awake, no acute distress Eyes/N/T: EOMI, Head/Neck: neck supple CV: RRR, No murmurs, Pulm: Clear b/l, no wheezing/rhonchi/rales Abd: soft, generalized TTP but more so epigastrum - improving, +BS x4 Ext: no clubbing/cyanosis/edema Neuro: Alert, no focal deficits, moves all extremities, Skin: warm/dry OBJ DATA Labs CBC & Chem 7: 08/03/20 05:15 08/03/20 05:15 Labs: Abnormal Lab Results 08/03/20 08/03/20 08/02/20 05:15 05:15 05:13 RBC 3.70 L 3.61 L Hgb 12.4 L 12.3 L Hct 35.1 L 34.3 L POC Hct MCH 34.1 H MCHC RDW 15.9 H 14.8 H Plt Count 53 L 47 L* MPV 11.9 H 12.4 H Neut % (Auto) Lymph % (Auto) [place] % (Auto) Lymph # (Auto) 1.46 L POC Sodium Sodium Chloride BUN 2 L Glucose POC Glucose Uric Acid Calcium 8.5 L POC WB Ioniz Calcium Phosphorus 2.3 L Total Bilirubin 2.5 H Direct Bilirubin 1.6 H GGT 2449 H AST 158 H ALT 97 H Alkaline Phosphatase 251 H Lactate Dehydrogenase 242 H Albumin Globulin 3.8 H Albumin/Globulin Ratio 0.9 L Triglycerides 281 H Lipase Ur Amphetamines Screen U Marijuana (THC) Screen Ethyl Alcohol 08/02/20 08/02/20 08/01/20 05:12 05:12 20:57 RBC Hgb Hct POC Hct MCH MCHC RDW Plt Count MPV Neut % (Auto) Lymph % (Auto) [place] % (Auto) Lymph # (Auto) POC Sodium Sodium Chloride 95 L BUN 4 L Glucose 66 L POC Glucose Uric Acid 8.2 H Calcium 7.9 L POC WB Ioniz Calcium Phosphorus 2.4 L Total Bilirubin 2.3 H Direct Bilirubin 1.2 H GGT 2620 H AST 189 H ALT 100 H Alkaline Phosphatase 224 H Lactate Dehydrogenase 341 H 302 H Albumin Globulin Albumin/Globulin Ratio Triglycerides 535 H Lipase 260 H Ur Amphetamines Screen U Marijuana (THC) Screen Ethyl Alcohol 08/01/20 08/01/20 08/01/20 18:39 15:55 15:50 RBC 3.59 L 3.03 L Hgb 12.3 L 10.4 L Hct 34.6 L 28.9 L POC Hct MCH 34.3 H 34.3 H MCHC RDW 15.5 H 15.6 H Plt Count 72 L 60 L MPV 12.9 H 12.4 H Neut % (Auto) 78.3 H Lymph % (Auto) [place] % (Auto) Lymph # (Auto) 1.25 L POC Sodium Sodium Chloride BUN Glucose POC Glucose Uric Acid Calcium POC WB Ioniz Calcium Phosphorus Total Bilirubin Direct Bilirubin GGT AST ALT Alkaline Phosphatase Lactate Dehydrogenase Albumin Globulin Albumin/Globulin Ratio Triglycerides Lipase Ur Amphetamines Screen Suspect positive A U Marijuana (THC) Screen Suspect positive A Ethyl Alcohol 08/01/20 08/01/20 08/01/20 13:40 13:35 13:35 RBC Hgb Hct POC Hct 40 L MCH MCHC RDW Plt Count MPV Neut % (Auto) Lymph % (Auto) [place] % (Auto) Lymph # (Auto) POC Sodium 129 L Sodium 127 L Chloride 91 L BUN Glucose 111 H POC Glucose 106 H Uric Acid Calcium 8.2 L POC WB Ioniz Calcium 1.02 L Phosphorus Total Bilirubin 2.2 H Direct Bilirubin GGT AST ALT Alkaline Phosphatase 227 H Lactate Dehydrogenase Albumin 3.0 L Globulin Albumin/Globulin Ratio Triglycerides Lipase 429 H Ur Amphetamines Screen U Marijuana (THC) Screen Ethyl Alcohol 0.010 H 08/01/20 13:35 RBC 3.57 L Hgb 12.5 L Hct 34.2 L POC Hct MCH 35.0 H MCHC 36.5 H RDW 15.4 H Plt Count 59 L MPV 11.6 H Neut % (Auto) 80.9 H Lymph % (Auto) 13.4 L [place] % (Auto) 52.0 H Lymph # (Auto) 1.03 L POC Sodium Sodium Chloride BUN Glucose POC Glucose Uric Acid Calcium POC WB Ioniz Calcium Phosphorus Total Bilirubin Direct Bilirubin GGT AST ALT Alkaline Phosphatase Lactate Dehydrogenase Albumin Globulin Albumin/Globulin Ratio Triglycerides Lipase Ur Amphetamines Screen U Marijuana (THC) Screen Ethyl Alcohol Meds: Medications Hydrocodone Bitart/Acetaminophen ([place] 5/325mg) 1 tab PO Q4HP PRN PRN Reason: PAIN LEVEL 3-6 Last Admin: 08/03/20 04:54 Dose: 1 tab Documented by: Calcium Carbonate/Glycine (Tums) 500 mg CHEWED Q4HP PRN PRN Reason: Dyspepsia Chlordiazepoxide HCl (Librium) 50 mg PO Q4HP PRN PRN Reason: Alcohol Withdrawal Last Admin: 08/03/20 04:54 Dose: 50 mg Documented by: Clonidine HCl (Catapres) 0.1 mg PO Q4HP PRN PRN Reason: ALC Last Admin: 08/02/20 22:59 Dose: 0.1 mg Documented by: Folic Acid (Folic Acid) 1 mg PO DAILY [facility] Last Admin: 08/02/20 09:31 Dose: 1 mg Documented by: Potassium Chloride 40 meq/ (Dextrose) 520 mls @ 130 mls/hr IV UD PRN PRN Reason: Potassium < 3 Magnesium Sulfate (Magnesium Sulfate) 2 gm in 50 mls @ 50 mls/hr IV UD PRN PRN Reason: Magnesium </= 1.6 Thiamine HCl 100 mg/ Sodium (Chloride) 51 mls @ 50 mls/hr IV DAILY [facility] Last Infusion: 08/02/20 10:48 Dose: Infused Documented by: Iron Carb/Multivit/[employer]/Folic Acid (Multivitamin W/Minerals) 1 tab PO DAILY [facility] Last Admin: 08/02/20 09:31 Dose: 1 tab Documented by: Lorazepam (Ativan) 0 mg IV Q4HP PRN; Protocol PRN Reason: Alcohol Withdrawal Last Admin: 08/03/20 02:11 Dose: 2 mg Documented by: Ondansetron HCl (Zofran) 4 mg IV Q4HP PRN PRN Reason: Nausea And Vomiting Last Admin: 08/02/20 09:33 Dose: 4 mg Documented by: Pantoprazole Sodium (Protonix) 40 mg PO BIDAC JESSICA Last Admin: 08/02/20 17:45 Dose: 40 mg Documented by: Polyethylene Glycol (Miralax) 17 gm PO DAILYP PRN PRN Reason: Constipation Potassium Chloride (Kdur) 40 meq PO UD PRN PRN Reason: Potssium is 3-3.5 Potassium Chloride (Kdur) 40 meq PO UD PRN PRN Reason: Potassium < 3 Senna (Senokot) 2 tab PO DAILYP PRN PRN Reason: Constipation Sodium Chloride (Saline Flush) 10 ml IV Q8 [facility] Last Admin: 08/03/20 04:56 Dose: 10 ml Documented by: A/P Narrative A/P Narrative: A: *Acute Alcohol withdrawal w/Seizure: -IV ativan last night for CIWA *Alcohol abuse: *Pancreatitis, alcohol induced, mild: *Hyponatremia: improved *Fatty liver with Transaminitis and imaging suggesting Cirrhosis: stable labs from June *Thrombocytopenia: likely etoh induced by direct toxicity to bone marrow -72>47>53 *Tobacco abuse: *GERD: *in process of being set-up with GI outpt for endoscopy for n/v with food. P: -CIWA protocol -Multivitamins -IV fluids d/c -full liquid diet low fat advance to GI soft -Follow-up with Dr. Ohara outpatient -Follow-up with gastroenterology outpatient for cirrhosis evaluation -Smoking cessation counseling -ppx: SCD Time Spent With Patient Time: Total time spent is greater than 50% in coordination of care (as documented) at patient's floor/unit and/or counseling patient:
[2020-08-03] MEDS: MULTIVIT,THER IRON,CA,FA & MIN 1 TABLET PO SCH (08:15)
[2020-08-03] MEDS: THIAMINE 100 MG in 0.9 % SODIUM CHLORIDE 50 ML IV SCH (08:15)
[2020-08-03] MEDS: FOLIC ACID 1 MG TABLET PO SCH (08:15)
[2020-08-03] MEDS: PANTOPRAZOLE 40 MG PACKET PO SCH ×2 (08:36→16:39)
[2020-08-03] MEDS: cloNIDine HCL 0.1 MG TABLET PO PRN ×3 (10:50→19:46)
[2020-08-03] MEDS: NICOTINE 14 MG PATCH TOPICAL SCH (10:50)
[2020-08-03] MEDS ORDERED: KETOROLAC 30 MG/ML VIAL IV ONE (16:50)
[2020-08-03] MEDS ORDERED: BUTALB/ACETAMINOPHEN/CAFFEINE 1 TABLET PO ONE (17:21)
[2020-08-03] MEDS ORDERED: BUTALB/ACETAMINOPHEN/CAFFEINE 1 TABLET PO PRN (20:10)
[2020-08-04] MEDS: cloNIDine HCL 0.1 MG TABLET PO PRN ×3 (00:21→18:42)
[2020-08-04] MEDS: HYDROcodone/APAP 5/325MG TABLET PO PRN ×5 (00:23→20:40)
[2020-08-04] MEDS: LORazepam 2 MG/ML VIAL IV PRN (01:15)
[2020-08-04] MEDS: 0.9 % SODIUM CHLORIDE 10 ML SYRINGE IV SCH ×3 (05:46→20:55)
[2020-08-04 06:59] LABS: Blood Urea Nitrogen 4 mg/dL (6-20); Calcium 8.7 mg/dL (8.6-10.4); Carbon Dioxide 29 mmol/L (22-30); Chloride 101 mmol/L (96-108); Glomerular Filtration Rate 123; Glucose 88 mg/dL (70-105)
--- NOTE | 2020-08-04 08:22 | Internal Med Progress Note ---
SUBJECTIVE Subjective Patient information: Note initiated : 08/04/20 at 8:21 am Service Date, if different from initiated Date: [] Patient: Lynn Leonardo a 34 y/o M admitted on 08/01/20 for seizure. Chief Complaint: [] Interval history: History of present illness: Mr. Leonardo is a 34 year old M Presents to the ED with seizure. Patient has not had seizures before. He does have an extensive history of alcohol abuse. States he drinks at least half a gallon of vodka on a typical day. He has been trying to cut back lately. While at work he had a witnessed seizure. He was tachycardic and hypertensive in the ED. He says that when he gets tremulous at home he will drink alcohol will resolve of his withdrawal symptoms. He has a family history of alcoholism as well. Additionally he complains of epigastric sharp pain nonradiating that he attributes to nausea vomiting. He states he does not eat or drink very much because he developed nausea vomiting and then subsequent abdominal pain. he says this been going on for 6 months but worsened over the past couple months. He says he is being set up to see [facility] gastroenterology group. He denies any drug use other than occasional marijuana. He had his stool Hemoccult test which was negative in the ED. 08/02 CIWA between 9 and 13 last night. Given as needed lorazepam. No other overnight issues. Patient tolerated clear liquid diet last night. Says he is hungry. Platelets low, chronically low. No bleeding. Dates he has some headache/fever/chills. Afebrile on vital signs check. Some nausea but no vomiting. Similar abdominal pain to yesterday but a little better. 08/03 Feeling a little better. Did get some IV Ativan overnight for elevated CIWA. Tolerating full liquid diet. CBC stable. Liver enzymes slightly improved. Ultrasound with findings suggestive of cirrhosis. Abdominal pain improving. 08/04 Patient woke up early this morning said he wanted to leave AMA and then fell back asleep. I visited him when he was just waking back up he says he has some headache and tinnitus. Now stating he does not want to leave AMA. Did get IV Ativan last night for elevated CIWA. confusion at times tolerating soft diet Review of Systems: denies fever/chills//vomiting/chest pain/cough/dyspnea/diarrhea. Otherwise see above. Constitutional Vitals: Vital Signs Temp Pulse Resp BP Pulse Ox 97.6 F 106 H 22 142/106 99 08/04/20 05:22 08/02/20 18:02 08/04/20 05:22 08/04/20 05:22 08/04/20 05:22 Period Temp Pulse Resp BP Sys/Jennings Pulse Ox Last 24 Hr 97.1 F-98.0 F 16- 109-142/65-106 97-100 Intake and Output 08/03/20 08/04/20 08/04/20 21:59 05:59 13:59 Intake Total 690 2400 Output Total 1875 1900 700 Balance -1185 500 -700 Weight 63.134 kg Intake & Output: Intake & Output 08/03/20 08/04/20 08/04/20 21:59 05:59 13:59 Intake Total 690 2400 Output Total 1875 1900 700 Balance -1185 500 -700 Weight 63.134 kg Intake: Oral 690 2400 Output: Void Amount 1875 1900 700 Other: Meal Dinner Percent of Meal Consumed 75% Urine Appearance Clear Clear Urine Color Bright Yellow Bright Yellow Bright Yellow Urine Odor Normal Normal Normal Exam: General: Alert, Awake, no acute distress Eyes/N/T: EOMI, Head/Neck: neck supple CV: RRR, No murmurs, Pulm: Clear b/l, no wheezing/rhonchi/rales Abd: soft, generalized TTP but more so epigastrum - improving, +BS x4 Ext: no clubbing/cyanosis/edema Neuro: Alert, no focal deficits, moves all extremities, tremors in hands Skin: warm/dry OBJ DATA Labs CBC & Chem 7: 08/03/20 05:15 08/04/20 05:15 Labs: Abnormal Lab Results 08/04/20 08/03/20 08/03/20 05:15 05:15 05:15 RBC 3.70 L Hgb 12.4 L Hct 35.1 L POC Hct MCH MCHC RDW 15.9 H Plt Count 53 L MPV 11.9 H Neut % (Auto) Lymph % (Auto) [place] % (Auto) Lymph # (Auto) 1.46 L POC Sodium Sodium Chloride Anion Gap 7.0 L BUN 4 L 2 L Glucose POC Glucose Uric Acid Calcium 8.5 L POC WB Ioniz Calcium Phosphorus 2.3 L Total Bilirubin 2.5 H Direct Bilirubin 1.6 H GGT 2449 H AST 158 H ALT 97 H Alkaline Phosphatase 251 H Lactate Dehydrogenase 242 H Albumin Globulin 3.8 H Albumin/Globulin Ratio 0.9 L Triglycerides 281 H Lipase Ur Amphetamines Screen U Marijuana (THC) Screen Ethyl Alcohol 08/02/20 08/02/20 08/02/20 05:13 05:12 05:12 RBC 3.61 L Hgb 12.3 L Hct 34.3 L POC Hct MCH 34.1 H MCHC RDW 14.8 H Plt Count 47 L* MPV 12.4 H Neut % (Auto) Lymph % (Auto) [place] % (Auto) Lymph # (Auto) POC Sodium Sodium Chloride 95 L Anion Gap BUN 4 L Glucose 66 L POC Glucose Uric Acid 8.2 H Calcium 7.9 L POC WB Ioniz Calcium Phosphorus 2.4 L Total Bilirubin 2.3 H Direct Bilirubin 1.2 H GGT 2620 H AST 189 H ALT 100 H Alkaline Phosphatase 224 H Lactate Dehydrogenase 341 H Albumin Globulin Albumin/Globulin Ratio Triglycerides 535 H Lipase 260 H Ur Amphetamines Screen U Marijuana (THC) Screen Ethyl Alcohol 08/01/20 08/01/20 08/01/20 20:57 18:39 15:55 RBC 3.59 L Hgb 12.3 L Hct 34.6 L POC Hct MCH 34.3 H MCHC RDW 15.5 H Plt Count 72 L MPV 12.9 H Neut % (Auto) Lymph % (Auto) [place] % (Auto) Lymph # (Auto) POC Sodium Sodium Chloride Anion Gap BUN Glucose POC Glucose Uric Acid Calcium POC WB Ioniz Calcium Phosphorus Total Bilirubin Direct Bilirubin GGT AST ALT Alkaline Phosphatase Lactate Dehydrogenase 302 H Albumin Globulin Albumin/Globulin Ratio Triglycerides Lipase Ur Amphetamines Screen Suspect positive A U Marijuana (THC) Screen Suspect positive A Ethyl Alcohol 08/01/20 08/01/20 08/01/20 15:50 13:40 13:35 RBC 3.03 L Hgb 10.4 L Hct 28.9 L POC Hct MCH 34.3 H MCHC RDW 15.6 H Plt Count 60 L MPV 12.4 H Neut % (Auto) 78.3 H Lymph % (Auto) [place] % (Auto) Lymph # (Auto) 1.25 L POC Sodium Sodium Chloride Anion Gap BUN Glucose POC Glucose Uric Acid Calcium POC WB Ioniz Calcium Phosphorus Total Bilirubin Direct Bilirubin GGT AST ALT Alkaline Phosphatase Lactate Dehydrogenase Albumin Globulin Albumin/Globulin Ratio Triglycerides Lipase 429 H Ur Amphetamines Screen U Marijuana (THC) Screen Ethyl Alcohol 0.010 H 08/01/20 08/01/20 13:35 13:35 RBC 3.57 L Hgb 12.5 L Hct 34.2 L POC Hct 40 L MCH 35.0 H MCHC 36.5 H RDW 15.4 H Plt Count 59 L MPV 11.6 H Neut % (Auto) 80.9 H Lymph % (Auto) 13.4 L [place] % (Auto) 52.0 H Lymph # (Auto) 1.03 L POC Sodium 129 L Sodium 127 L Chloride 91 L Anion Gap BUN Glucose 111 H POC Glucose 106 H Uric Acid Calcium 8.2 L POC WB Ioniz Calcium 1.02 L Phosphorus Total Bilirubin 2.2 H Direct Bilirubin GGT AST ALT Alkaline Phosphatase 227 H Lactate Dehydrogenase Albumin 3.0 L Globulin Albumin/Globulin Ratio Triglycerides Lipase Ur Amphetamines Screen U Marijuana (THC) Screen Ethyl Alcohol Meds: Medications Acetaminophen/Butalbital/Caffeine (Fioricet) 1 tab PO Q6HP PRN PRN Reason: Headache Hydrocodone Bitart/Acetaminophen (Hydrocodone/Apap 5/325mg Tablet) 1 tab PO Q4HP PRN PRN Reason: PAIN LEVEL 3-6 Last Admin: 08/04/20 05:39 Dose: 1 tab Documented by: Calcium Carbonate/Glycine (Tums) 500 mg CHEWED Q4HP PRN PRN Reason: Dyspepsia Chlordiazepoxide HCl (Librium) 50 mg PO Q4HP PRN PRN Reason: Alcohol Withdrawal Last Admin: 08/03/20 22:34 Dose: 50 mg Documented by: Clonidine HCl (Catapres) 0.1 mg PO Q4HP PRN PRN Reason: ALC Last Admin: 08/04/20 00:21 Dose: 0.1 mg Documented by: Folic Acid (Folic Acid) 1 mg PO DAILY [facility] Last Admin: 08/03/20 08:15 Dose: 1 mg Documented by: Potassium Chloride 40 meq/ (Dextrose) 520 mls @ 130 mls/hr IV UD PRN PRN Reason: Potassium < 3 Magnesium Sulfate (Magnesium Sulfate) 2 gm in 50 mls @ 50 mls/hr IV UD PRN PRN Reason: Magnesium </= 1.6 Thiamine HCl 100 mg/ Sodium (Chloride) 51 mls @ 50 mls/hr IV DAILY [facility] Last Infusion: 08/03/20 09:24 Dose: Infused Documented by: Iron Carb/Multivit/[place]/Folic Acid (Multivitamin W/Minerals) 1 tab PO DAILY [facility] Last Admin: 08/03/20 08:15 Dose: 1 tab Documented by: Lorazepam (Ativan) 0 mg IV Q4HP PRN; Protocol PRN Reason: Alcohol Withdrawal Last Admin: 08/04/20 01:15 Dose: 2 mg Documented by: Nicotine (Nicoderm) 14 mg TOPICAL DAILY@1000 [facility] Last Admin: 08/03/20 10:50 Dose: 14 mg Documented by: Ondansetron HCl (Zofran) 4 mg IV Q4HP PRN PRN Reason: Nausea And Vomiting Last Admin: 08/02/20 09:33 Dose: 4 mg Documented by: Pantoprazole Sodium (Protonix) 40 mg PO BIDAC [facility] Last Admin: 08/03/20 16:39 Dose: 40 mg Documented by: Polyethylene Glycol (Miralax) 17 gm PO DAILYP PRN PRN Reason: Constipation Potassium Chloride (Kdur) 40 meq PO UD PRN PRN Reason: Potssium is 3-3.5 Last Admin: 08/03/20 16:38 Dose: 40 meq Documented by: Potassium Chloride (Kdur) 40 meq PO UD PRN PRN Reason: Potassium < 3 Senna (Senokot) 2 tab PO DAILYP PRN PRN Reason: Constipation Last Admin: 08/03/20 17:09 Dose: 2 tab Documented by: Sodium Chloride (Saline Flush) 10 ml IV Q8 [facility] Last Admin: 08/04/20 05:46 Dose: 10 ml Documented by: A/P Narrative A/P Narrative: A: *Acute Alcohol withdrawal w/Seizure: intermittent confusion. -IV ativan last night for CIWA *Alcohol abuse: *Pancreatitis, alcohol induced, mild: *Hyponatremia: improved *Fatty liver with Transaminitis and imaging suggesting Cirrhosis: stable labs from June *Thrombocytopenia: likely etoh induced by direct toxicity to bone marrow -72>47>53 *Tobacco abuse: *GERD: *in process of being set-up with GI outpt for endoscopy for n/v with food. P: -CIWA protocol -Multivitamins -GI soft low fat -Follow-up with Dr. Ohara outpatient -Follow-up with gastroenterology outpatient for cirrhosis evaluation -Smoking cessation counseling -ppx: SCD/ambulation Time Spent With Patient Time: Total time spent is greater than 50% in coordination of care (as documented) at patient's floor/unit and/or counseling patient:
[2020-08-04] MEDS: FOLIC ACID 1 MG TABLET PO SCH (09:44)
[2020-08-04] MEDS: MULTIVIT,THER IRON,CA,FA & MIN 1 TABLET PO SCH (09:44)
[2020-08-04] MEDS: PANTOPRAZOLE 40 MG PACKET PO SCH ×2 (09:44→17:20)
[2020-08-04] MEDS: NICOTINE 14 MG PATCH TOPICAL SCH (09:44)
[2020-08-04] MEDS: THIAMINE 100 MG in 0.9 % SODIUM CHLORIDE 50 ML IV SCH (09:45)
[2020-08-04] MEDS: chlordiazePOXIDE 25 MG CAPSULE PO PRN ×2 (09:46→15:04)
--- NOTE | 2020-08-04 12:44 | Internal Med Progress Note ---
SUBJECTIVE Subjective Patient information: Note initiated : 08/04/20 at 12:34 pm Service Date, if different from initiated Date: [] Patient: Lynn Leonardo a 34 y/o M admitted on 08/01/20 for seizure. Chief Complaint: [] Interval history: History of present illness: Mr. Leonardo is a 34 year old M Presents to the ED with seizure. Patient has not had seizures before. He does have an extensive history of alcohol abuse. States he drinks at least half a gallon of vodka on a typical day. He has been trying to cut back lately. While at work he had a witnessed seizure. He was tachycardic and hypertensive in the ED. He says that when he gets tremulous at home he will drink alcohol will resolve of his withdrawal symptoms. He has a family history of alcoholism as well. Additionally he complains of epigastric sharp pain nonradiating that he attributes to nausea vomiting. He states he does not eat or drink very much because he developed nausea vomiting and then subsequent abdominal pain. he says this been going on for 6 months but worsened over the past couple months. He says he is being set up to see [facility] gastroenterology group. He denies any drug use other than occasional marijuana. He had his stool Hemoccult test which was negative in the ED. 08/02 CIWA between 9 and 13 last night. Given as needed lorazepam. No other overnight issues. Patient tolerated clear liquid diet last night. Says he is hungry. Platelets low, chronically low. No bleeding. Dates he has some headache/fever/chills. Afebrile on vital signs check. Some nausea but no vomiting. Similar abdominal pain to yesterday but a little better. 08/03 Feeling a little better. Did get some IV Ativan overnight for elevated CIWA. Tolerating full liquid diet. CBC stable. Liver enzymes slightly improved. Ultrasound with findings suggestive of cirrhosis. Abdominal pain improving. 08/04 Patient woke up early this morning said he wanted to leave AMA and then fell back asleep. I visited him when he was just waking back up he says he has some headache and tinnitus. Now stating he does not want to leave AMA. Did get IV Ativan last night for elevated CIWA. confusion at times tolerating soft diet Review of Systems: denies fever/chills//vomiting/chest pain/cough/dyspnea/diarrhea. Otherwise see above. Constitutional Vitals: Vital Signs Temp Pulse Resp BP Pulse Ox 97.5 F 106 H 20 107/82 97 08/04/20 08:00 08/02/20 18:02 08/04/20 08:00 08/04/20 09:35 08/04/20 08:00 Period Temp Pulse Resp BP Sys/Jennings Pulse Ox Last 24 Hr 97.1 F-98.0 F 16-22 106-142/65-106 97-100 Intake and Output 08/03/20 08/04/20 08/04/20 21:59 05:59 13:59 Intake Total 690 2400 Output Total 1875 1900 700 Balance -1185 500 -700 Weight 63.134 kg Intake & Output: Intake & Output 08/03/20 08/04/20 08/04/20 21:59 05:59 13:59 Intake Total 690 2400 Output Total 1875 1900 700 Balance -1185 500 -700 Weight 63.134 kg Intake: Oral 690 2400 Output: Void Amount 1875 1900 700 Other: Meal Dinner Percent of Meal Consumed 75% Urine Appearance Clear Clear Urine Color Bright Yellow Bright Yellow Bright Yellow Urine Odor Normal Normal Normal Exam: General: Alert, Awake, no acute distress Eyes/N/T: EOMI, Head/Neck: neck supple CV: RRR, No murmurs, Pulm: Clear b/l, no wheezing/rhonchi/rales Abd: soft, generalized TTP but more so epigastrum - improving, +BS x4 Ext: no clubbing/cyanosis/edema Neuro: Alert, no focal deficits, moves all extremities, tremors in hands Skin: warm/dry OBJ DATA Labs CBC & Chem 7: 08/03/20 05:15 08/04/20 05:15 Labs: Abnormal Lab Results 08/04/20 08/03/20 08/03/20 05:15 05:15 05:15 RBC 3.70 L Hgb 12.4 L Hct 35.1 L POC Hct MCH MCHC RDW 15.9 H Plt Count 53 L MPV 11.9 H Neut % (Auto) Lymph % (Auto) [place] % (Auto) Lymph # (Auto) 1.46 L POC Sodium Sodium Chloride Anion Gap 7.0 L BUN 4 L 2 L Glucose POC Glucose Uric Acid Calcium 8.5 L POC WB Ioniz Calcium Phosphorus 2.3 L Total Bilirubin 2.5 H Direct Bilirubin 1.6 H GGT 2449 H AST 158 H ALT 97 H Alkaline Phosphatase 251 H Lactate Dehydrogenase 242 H Albumin Globulin 3.8 H Albumin/Globulin Ratio 0.9 L Triglycerides 281 H Lipase Ur Amphetamines Screen U Marijuana (THC) Screen Ethyl Alcohol 08/02/20 08/02/20 08/02/20 05:13 05:12 05:12 RBC 3.61 L Hgb 12.3 L Hct 34.3 L POC Hct MCH 34.1 H MCHC RDW 14.8 H Plt Count 47 L* MPV 12.4 H Neut % (Auto) Lymph % (Auto) [place] % (Auto) Lymph # (Auto) POC Sodium Sodium Chloride 95 L Anion Gap BUN 4 L Glucose 66 L POC Glucose Uric Acid 8.2 H Calcium 7.9 L POC WB Ioniz Calcium Phosphorus 2.4 L Total Bilirubin 2.3 H Direct Bilirubin 1.2 H GGT 2620 H AST 189 H ALT 100 H Alkaline Phosphatase 224 H Lactate Dehydrogenase 341 H Albumin Globulin Albumin/Globulin Ratio Triglycerides 535 H Lipase 260 H Ur Amphetamines Screen U Marijuana (THC) Screen Ethyl Alcohol 08/01/20 08/01/20 08/01/20 20:57 18:39 15:55 RBC 3.59 L Hgb 12.3 L Hct 34.6 L POC Hct MCH 34.3 H MCHC RDW 15.5 H Plt Count 72 L MPV 12.9 H Neut % (Auto) Lymph % (Auto) [place] % (Auto) Lymph # (Auto) POC Sodium Sodium Chloride Anion Gap BUN Glucose POC Glucose Uric Acid Calcium POC WB Ioniz Calcium Phosphorus Total Bilirubin Direct Bilirubin GGT AST ALT Alkaline Phosphatase Lactate Dehydrogenase 302 H Albumin Globulin Albumin/Globulin Ratio Triglycerides Lipase Ur Amphetamines Screen Suspect positive A U Marijuana (THC) Screen Suspect positive A Ethyl Alcohol 08/01/20 08/01/20 08/01/20 15:50 13:40 13:35 RBC 3.03 L Hgb 10.4 L Hct 28.9 L POC Hct MCH 34.3 H MCHC RDW 15.6 H Plt Count 60 L MPV 12.4 H Neut % (Auto) 78.3 H Lymph % (Auto) [place] % (Auto) Lymph # (Auto) 1.25 L POC Sodium Sodium Chloride Anion Gap BUN Glucose POC Glucose Uric Acid Calcium POC WB Ioniz Calcium Phosphorus Total Bilirubin Direct Bilirubin GGT AST ALT Alkaline Phosphatase Lactate Dehydrogenase Albumin Globulin Albumin/Globulin Ratio Triglycerides Lipase 429 H Ur Amphetamines Screen U Marijuana (THC) Screen Ethyl Alcohol 0.010 H 08/01/20 08/01/20 13:35 13:35 RBC 3.57 L Hgb 12.5 L Hct 34.2 L POC Hct 40 L MCH 35.0 H MCHC 36.5 H RDW 15.4 H Plt Count 59 L MPV 11.6 H Neut % (Auto) 80.9 H Lymph % (Auto) 13.4 L [place] % (Auto) 52.0 H Lymph # (Auto) 1.03 L POC Sodium 129 L Sodium 127 L Chloride 91 L Anion Gap BUN Glucose 111 H POC Glucose 106 H Uric Acid Calcium 8.2 L POC WB Ioniz Calcium 1.02 L Phosphorus Total Bilirubin 2.2 H Direct Bilirubin GGT AST ALT Alkaline Phosphatase 227 H Lactate Dehydrogenase Albumin 3.0 L Globulin Albumin/Globulin Ratio Triglycerides Lipase Ur Amphetamines Screen U Marijuana (THC) Screen Ethyl Alcohol Meds: Medications Acetaminophen/Butalbital/Caffeine ([place]/Acetaminophen/Caffeine 1 Tablet) 1 tab PO Q6HP PRN PRN Reason: Headache Last Admin: 08/04/20 12:07 Dose: 1 tab Documented by: Hydrocodone Bitart/Acetaminophen (Hydrocodone/Apap 5/325mg Tablet) 1 tab PO Q4HP PRN PRN Reason: PAIN LEVEL 3-6 Last Admin: 08/04/20 10:25 Dose: 1 tab Documented by: Calcium Carbonate/Glycine (Tums) 500 mg CHEWED Q4HP PRN PRN Reason: Dyspepsia Chlordiazepoxide HCl (Librium) 50 mg PO Q4HP PRN PRN Reason: Alcohol Withdrawal Last Admin: 08/04/20 09:46 Dose: 50 mg Documented by: Clonidine HCl (Catapres) 0.1 mg PO Q4HP PRN PRN Reason: ALC Last Admin: 08/04/20 09:46 Dose: 0.1 mg Documented by: Folic Acid (Folic Acid) 1 mg PO DAILY [facility] Last Admin: 08/04/20 09:44 Dose: 1 mg Documented by: Potassium Chloride 40 meq/ (Dextrose) 520 mls @ 130 mls/hr IV UD PRN PRN Reason: Potassium < 3 Magnesium Sulfate (Magnesium Sulfate) 2 gm in 50 mls @ 50 mls/hr IV UD PRN PRN Reason: Magnesium </= 1.6 Thiamine HCl 100 mg/ Sodium (Chloride) 51 mls @ 50 mls/hr IV DAILY [facility] Last Admin: 08/04/20 09:45 Dose: 51 mls/hr Documented by: Iron Carb/Multivit/[place]/Folic Acid (Multivitamin W/Minerals) 1 tab PO DAILY [facility] Last Admin: 08/04/20 09:44 Dose: 1 tab Documented by: Lorazepam (Ativan) 0 mg IV Q4HP PRN; Protocol PRN Reason: Alcohol Withdrawal Last Admin: 08/04/20 01:15 Dose: 2 mg Documented by: Nicotine (Nicoderm) 14 mg TOPICAL DAILY@1000 [facility] Last Admin: 08/04/20 09:44 Dose: 14 mg Documented by: Ondansetron HCl (Zofran) 4 mg IV Q4HP PRN PRN Reason: Nausea And Vomiting Last Admin: 08/02/20 09:33 Dose: 4 mg Documented by: Pantoprazole Sodium (Protonix) 40 mg PO BIDAC [facility] Last Admin: 08/04/20 09:44 Dose: 40 mg Documented by: Polyethylene Glycol (Miralax) 17 gm PO DAILYP PRN PRN Reason: Constipation Potassium Chloride (Kdur) 40 meq PO UD PRN PRN Reason: Potssium is 3-3.5 Last Admin: 08/03/20 16:38 Dose: 40 meq Documented by: Potassium Chloride (Kdur) 40 meq PO UD PRN PRN Reason: Potassium < 3 Senna (Senokot) 2 tab PO DAILYP PRN PRN Reason: Constipation Last Admin: 08/03/20 17:09 Dose: 2 tab Documented by: Sodium Chloride (Saline Flush) 10 ml IV Q8 [facility] Last Admin: 08/04/20 05:46 Dose: 10 ml Documented by: A/P Narrative A/P Narrative: ASSESSMENT: 34-year-old male with history of severe alcohol use disorder, tob acco use disorder, admitted after a seizure which was attributed to alcohol withdrawal, mild pancreatitis attributed to alcohol, mild transaminitis attributed to alcohol, ultrasound imaging suggestive of cirrhosis. Alcohol withdrawal treatment required IV benzodiazepines, there were no recurrent sei zures since hospital admission. *Acute Alcohol withdrawal w/Seizure: intermittent confusion. -IV ativan last night for CIWA *Alcohol abuse: *Pancreatitis, alcohol induced, mild: *Hyponatremia: improved *Fatty liver with Transaminitis and imaging suggesting Cirrhosis: stable labs from June *Thrombocytopenia: likely etoh induced by direct toxicity to bone marrow -72>47>53 *Tobacco abuse: *GERD: *in process of being set-up with GI outpt for endoscopy for n/v with food. PLAN: -CIIL protocol -Multivitamins -GI soft low fat -Follow-up with Dr. Ohara outpatient -Follow-up with gastroenterology outpatient for cirrhosis evaluation -Smoking cessation counseling -ppx: SCD/ambulation Time Spent With Patient Time: Total time spent is greater than 50% in coordination of care (as documented) at patient's floor/unit and/or counseling patient:
[2020-08-04] MEDS ORDERED: SUMAtriptan SUCCINATE 50 MG TABLET PO PRN (17:55)
[2020-08-04] MEDS ORDERED: traZODone HCL 50 MG TABLET PO PRN (21:00)
[2020-08-05] MEDS: HYDROcodone/APAP 5/325MG TABLET PO PRN (00:11)
[2020-08-05] MEDS: 0.9 % SODIUM CHLORIDE 10 ML SYRINGE IV SCH ×2 (05:40→16:36)
[2020-08-05 07:18] LABS: Hematocrit 35.1 % (41.0-55.0); Mean Corpuscular HGB Conc 34.2 g/dL (31.0-36.0); Mean Platelet Volume 11.1 fL (7.4-10.4); Platelet Count 137 K/mcL (140-440); RBC 3.62 M/mcL (4.50-5.90); Red Cell Distribution Width 16.6 % (11.5-14.5); WBC 5.3 K/mcL (4.5-11.0)
[2020-08-05 07:45] LABS: ALT/SGPT 94 U/L (<40); AST/SGOT 119 U/L (<40); Albumin 3.3 gm/dL (3.2-5.2); Albumin/Globulin Ratio 0.9 (1.0-2.3); Alkaline Phosphatase 230 U/L (39-117); Bilirubin,Direct 0.8 mg/dL (<0.3); Bilirubin,Total 1.6 mg/dL (0.1-1.0); Blood Urea Nitrogen 7 mg/dL (6-20); Calcium 9.3 mg/dL (8.6-10.4); Carbon Dioxide 29 mmol/L (22-30); Chloride 98 mmol/L (96-108); Globulin 3.7 gm/dL (2.2-3.7); Glomerular Filtration Rate 123; Glucose 91 mg/dL (70-105); Lactate Dehydrogenase 216 U/L (135-225); Phosphorous 2.6 mg/dL (2.5-4.5); Triglycerides 289 mg/dL (<150); Uric Acid 5.7 mg/dL (2.5-8.0)
[2020-08-05] MEDS: THIAMINE 100 MG in 0.9 % SODIUM CHLORIDE 50 ML IV SCH (09:00)
[2020-08-05] MEDS: MULTIVIT,THER IRON,CA,FA & MIN 1 TABLET PO SCH (10:03)
[2020-08-05] MEDS: NICOTINE 14 MG PATCH TOPICAL SCH (10:03)
[2020-08-05] MEDS: PANTOPRAZOLE 40 MG PACKET PO SCH (10:03)
[2020-08-05] MEDS: FOLIC ACID 1 MG TABLET PO SCH (10:03)
--- NOTE | 2020-08-05 10:03 | Discharge Summary ---
Discharge Provider Provider Patient information: Note initiated : 08/05/20 at 9:50 am Service Date, if different from initiated Date: [] Patient: Lynn Leonardo 34 y/o M admitted on 08/01/20 for seizure. Chief Complaint: [] Date of admission: 08/01/20 20:27 Discharge date: 08/05/20 Consults: 08/01/20 Consult to Physician [CONS] Stat Comment: Consulting Provider: April Ohara Reason For Exam: Physician to Consult Consult to Physician [CONS] Stat Comment: Consulting Provider: Chin Burrell Reason For Exam: Physician to Consult COURSE Hospital Course Hospital course: Mr. Leonardo is a 34 year old male who presented to the ED after experiencing a witnessed seizure at work shortly that occurred in the setting of abruptly discontinuing alcohol intake. He does have an extensive history of alcohol abuse, stated he was drinking at least half a gallon of vodka on a typical day. He had been trying to cut back lately. He was tachycardic and hypertensive in the ED. He says that when he gets tremulous at home he will drink alcohol will resolve of his withdrawal symptoms. He has a family history of alcoholism as well. Additionally he complained of epigastric sharp pain nonradiating that he attributes to nausea vomiting. He states he does not eat or drink very much because he developed nausea vomiting and then subsequent abdominal pain. He says he is being set up to see [facility] gastroenterology group. He denies any drug use other than occasional marijuana. He had his stool Hemoccult test which was negative in the ED. The patient was admitted to the hospital for alcohol withdrawal. 08/02 CIWA between 9 and 13 last night. Given as needed lorazepam. No other overnight issues. Patient tolerated clear liquid diet last night. Says he is hungry. Platelets low, chronically low. No bleeding. Dates he has some headache/fever/chills. Afebrile on vital signs check. Some nausea but no vomiting. Similar abdominal pain to yesterday but a little better. 08/03 Feeling a little better. Did get some IV Ativan overnight for elevated CIWA. Tolerating full liquid diet. CBC stable. Liver enzymes slightly improved. Ultrasound with findings suggestive of cirrhosis. Abdominal pain improving. 08/04 Patient woke up early this morning said he wanted to leave AMA and then fell back asleep. I visited him when he was just waking back up he says he has some headache and tinnitus. Now stating he does not want to leave AMA. Did get IV Ativan last night for elevated CIWA. confusion at times tolerating soft diet 08/05 Alcohol withdrawal has resolved, back to baseline cognition. Discussed findings concerning for liver injury and myelotoxicity associated with alcohol use and the importance of abstinence. He says all alcohol has been removed from his place. The patient plans to follow up with addiction medicine. Discharged to home with planned follow up with addiction medicine and GI. Follow up Substance use disorder management with addiction medicine. Follow up elevated liver function tests. Consider screening for viral hepatitis and HIV at follow up given hx of substance use. Follow up with GI for possible liver cirrhosis. 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 Eyes: normal appearance, no scleral icterus. Neck: full ROM Respiratory: no respiratory distress. Cardiovascular: normal rate and rhythm, S1, S2. GI/Abdominal: soft, nontender, no guarding. Extremities: full range of motion, nontender. Neurological: CN II-XII intact, intact motor, intact sensation. Psychiatric: normal mood. Skin: warm, normal color Discharge Data Data Completed and Pending Labs on day of discharge: Labs from last 24 hours 08/05/20 08/05/20 04:52 04:52 WBC 5.3 RBC 3.62 L Hgb 12.0 L Hct 35.1 L MCV 97.0 MCH 33.1 MCHC 34.2 RDW 16.6 H Plt Count 137 L MPV 11.1 H Sodium 137 Potassium 3.9 Chloride 98 Carbon Dioxide 29 Anion Gap 10.0 BUN 7 Creatinine 0.7 GFR Calculation 123 Glucose 91 Uric Acid 5.7 Calcium 9.3 Phosphorus 2.6 Magnesium 1.6 Total Bilirubin 1.6 H Direct Bilirubin 0.8 H GGT 2034 H AST 119 H ALT 94 H Alkaline Phosphatase 230 H Lactate Dehydrogenase 216 Total Protein 7.0 Albumin 3.3 Globulin 3.7 Albumin/Globulin Ratio 0.9 L Triglycerides 289 H Discharge Plan Patient/Caregiver Discharge Instructions Activity: increase activity as tolerated Diet: Regular Diet Instructions: Lorazepam (By mouth), Pantoprazole (By mouth), Nonepileptic Seizures (GEN), Abuse of Alcohol (GEN), Alcohol Withdrawal (GEN) Activity Restrictions/Additional Instructions: Avoid all alcohol and drug use. You need to follow-up with your primary care provider of your choice within the next 24 to 48 hours for follow-up. If you do not have a primary care provider you may follow-up with Dr. Grossman who is on-call for unassigned patients. His number has been provided here for you. In addition we have sent a referral for you to Dr. Ohara Please call their office to schedule a follow-up appointment. She is an marketing data specialist. Return to ER if worsening signs/symptoms or other concerns. Follow Up Plan Follow up with: April Ohara DO [Physician] - Rakesh Grossman MD [Physician] - 08/23/20 4:30 pm (This is a one time post hospital appointment.) Patient Disposition: Home, Self-Care Prognosis: Fair Discharge Orders: Discharge Order (Routine); Ordered 08/05/20 Ordered By: Chris Cavazos
[2020-08-10 15:51] LABS: Cannabinoid Confirmation Positive
== END 2020-08-05 12:30 | disposition home or self-care (01) | DRG 897 ==
LOC: ED 13:02 → ICU 20:27
PROVIDERS: ADMIT Internal Medicine; ATTEND Internal Medicine